=== PATIENT | female | born 1960 | race Caucasian/White ===

== ENCOUNTER 2021-04-08 16:03 | Inpatient (IN) ==
[2021-04-08] MEDS ORDERED: Ondansetron ODT 4 MG TAB.RAPDIS PO PRN (20:42)
[2021-04-08] MEDS: Apixaban 5 MG TABLET PO SCH (21:53)
[2021-04-08] MEDS: *HR* OxyCODONE/APAP 5/325 TABLET PO PRN (23:35)
[2021-04-09] MEDS: *HR* OxyCODONE/APAP 5/325 TABLET PO PRN (03:42)
[2021-04-09] MEDS: Cefepime HCl 1,000 MG in 0.9 % Sodium Chloride Mini Bag 100 ML IVPB SCH ×2 (05:28→16:45)
[2021-04-09] MEDS ORDERED: *HR* HYDROcodone/Acet 5/325 mg TABLET PO ONE (08:15)
[2021-04-09] MEDS ORDERED: DULOXETINE HCL 60 MG PO SCH (09:00)
[2021-04-09] MEDS: Torsemide 20 MG TABLET PO SCH (09:29)
[2021-04-09] MEDS: Loratadine 10 MG TABLET PO SCH (09:31)
[2021-04-09] MEDS: Spironolactone 25 MG TABLET PO SCH (09:31)
[2021-04-09] MEDS: Primidone 50 MG TABLET PO SCH (09:32)
[2021-04-09] MEDS: *HR* Digoxin 0.125 MG TABLET PO SCH (09:32)
[2021-04-09] MEDS: Apixaban 5 MG TABLET PO SCH ×2 (09:32→20:07)
[2021-04-09] MEDS: Nystatin POWDER 30 GM BOTTLE TP SCH ×3 (09:46→20:07)
[2021-04-09] MEDS: Budesonide/Formoterol 160/4.5 1 PUFF INH IH SCH ×2 (09:52→21:30)
[2021-04-09 10:47] LABS: Basophils % 0.3 %; Hematocrit 41.5 % (35.3-44.9); Hemoglobin 12.9 g/dL (11.5-15.4); Immature Granulocytes % 0.7 % (0-4); Lymphocytes # 1.8 K/mcL (0.6-4.6); Lymphocytes % 19.8 %; Mean Corpuscular HGB Conc 31.1 g/dL (31.6-35.5); Mean Corpuscular Hemoglobin 29.4 pg (28.0-33.3); Mean Corpuscular Volume 94.5 fL (83.0-100.0); Mean Platelet Volume 10.5 fL (9.4-12.4); Monocytes # 0.7 K/mcL (0.0-1.3); Monocytes % 7.8 %; Neutrophils # 6.4 K/mcL (1.6-8.9); Nucleated Red Blood Cells 0.2 /100 WBC (0); Platelet Count 314 K/mcL (140-400); Red Blood Count 4.39 M/mcL (3.82-4.97); Red Cell Distribution Width 16.3 % (11.5-14.5); Segmented Neutrophils % 71.4 %
[2021-04-09 11:00] LABS: BUN/Creatinine Ratio 32 (6-26); Blood Urea Nitrogen 34 mg/dL (8-23); Calcium 8.9 mg/dL (8.6-10.3); Carbon Dioxide 31 mEq/L (23-29); Chloride 94 mEq/L (98-107); Glucose 176 mg/dL (70-105); Osmolality,Calculated 286 (280-300); Potassium 4.6 mEq/L (3.5-5.1); Sodium 132 mEq/L (136-145); eGFR For African Americans > 60 (> 60); eGFR For Non-African Americans 53 (> 60)
[2021-04-09] MEDS: *HR* HYDROcodone/Acet 5/325 mg TABLET PO PRN ×2 (16:44→22:25)
[2021-04-10] MEDS: Cefepime HCl 1,000 MG in 0.9 % Sodium Chloride Mini Bag 100 ML IVPB SCH (05:38)
[2021-04-10] MEDS: *HR* HYDROcodone/Acet 5/325 mg TABLET PO PRN ×3 (05:41→18:31)
[2021-04-10 06:06] LABS: Basophils # 0.1 K/mcL (0.0-0.2); Basophils % 0.8 %; Eosinophils # 0.2 K/mcL (0.0-0.6); Hemoglobin 12.8 g/dL (11.5-15.4); Immature Granulocytes % 0.9 % (0-4); Lymphocytes # 3.2 K/mcL (0.6-4.6); Lymphocytes % 27.4 %; Mean Corpuscular HGB Conc 30.5 g/dL (31.6-35.5); Mean Corpuscular Hemoglobin 29.1 pg (28.0-33.3); Mean Corpuscular Volume 95.5 fL (83.0-100.0); Mean Platelet Volume 10.3 fL (9.4-12.4); Monocytes # 1.2 K/mcL (0.0-1.3); Monocytes % 10.4 %; Platelet Count 315 K/mcL (140-400); Red Cell Distribution Width 16.7 % (11.5-14.5); Segmented Neutrophils % 58.5 %; White Blood Count 11.7 K/mcL (4.3-11.1)
[2021-04-10 06:15] LABS: Neutrophils # 6.8 K/mcL (1.6-8.9)
[2021-04-10 06:22] LABS: Albumin/Globulin Ratio 0.7 (1.1-2.2); Bilirubin,Total 1.5 mg/dL (0.3-1.0); Calcium 8.6 mg/dL (8.6-10.3); Globulin 4.2 g/dL (2.4-3.5); Potassium 4.3 mEq/L (3.5-5.1); Total Protein 7.2 g/dL (6.4-8.9)
[2021-04-10] MEDS: Budesonide/Formoterol 160/4.5 1 PUFF INH IH SCH ×2 (10:15→22:16)
[2021-04-10] MEDS: Apixaban 5 MG TABLET PO SCH ×2 (11:03→19:57)
[2021-04-10] MEDS: Torsemide 20 MG TABLET PO SCH (11:03)
[2021-04-10] MEDS: *HR* Digoxin 0.125 MG TABLET PO SCH (11:03)
[2021-04-10] MEDS: Primidone 50 MG TABLET PO SCH (11:04)
[2021-04-10] MEDS: Loratadine 10 MG TABLET PO SCH (11:04)
[2021-04-10] MEDS: Spironolactone 25 MG TABLET PO SCH (11:04)
[2021-04-10] MEDS: Nystatin POWDER 30 GM BOTTLE TP SCH ×3 (11:14→20:01)
[2021-04-10] MEDS: 0.9 % Sodium Chloride 1,000 ML IVC SCH ×2 (11:34→23:02)
[2021-04-10] MEDS: Nitrofurantoin (BID) 100 MG CAPSULE PO SCH (16:18)
[2021-04-10 22:39] VITALS: RESP 18
[2021-04-11] MEDS: *HR* HYDROcodone/Acet 5/325 mg TABLET PO PRN ×2 (06:31→15:11)
[2021-04-11 08:10] LABS: Basophils # 0.1 K/mcL (0.0-0.2); Basophils % 0.9 %; Eosinophils # 0.5 K/mcL (0.0-0.6); Eosinophils % 4.3 %; Hematocrit 42.8 % (35.3-44.9); Hemoglobin 13.2 g/dL (11.5-15.4); Immature Granulocytes % 0.7 % (0-4); Lymphocytes # 2.7 K/mcL (0.6-4.6); Lymphocytes % 25.6 %; Mean Corpuscular HGB Conc 30.8 g/dL (31.6-35.5); Mean Corpuscular Hemoglobin 29.2 pg (28.0-33.3); Mean Corpuscular Volume 94.7 fL (83.0-100.0); Mean Platelet Volume 11.3 fL (9.4-12.4); Monocytes # 1.1 K/mcL (0.0-1.3); Monocytes % 9.9 %; Neutrophils # 6.2 K/mcL (1.6-8.9); Platelet Count 321 K/mcL (140-400); Red Blood Count 4.52 M/mcL (3.82-4.97); Red Cell Distribution Width 16.8 % (11.5-14.5); Segmented Neutrophils % 58.6 %; White Blood Count 10.6 K/mcL (4.3-11.1)
[2021-04-11 08:34] LABS: Calcium 8.4 mg/dL (8.6-10.3); Magnesium 1.9 mg/dL (1.6-2.6); Potassium 4.3 mEq/L (3.5-5.1)
[2021-04-11] MEDS: Primidone 50 MG TABLET PO SCH (10:57)
[2021-04-11] MEDS: *HR* Digoxin 0.125 MG TABLET PO SCH (10:58)
[2021-04-11] MEDS: Nitrofurantoin (BID) 100 MG CAPSULE PO SCH ×2 (10:59→17:54)
[2021-04-11] MEDS: Spironolactone 25 MG TABLET PO SCH (10:59)
[2021-04-11] MEDS: Loratadine 10 MG TABLET PO SCH (10:59)
[2021-04-11] MEDS: Apixaban 5 MG TABLET PO SCH ×2 (11:00→21:34)
[2021-04-11] MEDS: Torsemide 20 MG TABLET PO SCH (11:00)
[2021-04-11] MEDS: Nystatin POWDER 30 GM BOTTLE TP SCH ×3 (11:00→21:38)
[2021-04-11] MEDS: Budesonide/Formoterol 160/4.5 1 PUFF INH IH SCH ×2 (11:21→22:52)
[2021-04-11] MEDS: Sennosides/Docusate Sodium TABLET PO SCH ×2 (11:22→21:34)
[2021-04-11] MEDS ORDERED: Capsaicin 0.025% 60 GM TUBE TP PRN (16:40)
[2021-04-12] MEDS: *HR* HYDROcodone/Acet 5/325 mg TABLET PO PRN ×2 (04:52→14:15)
[2021-04-12 07:23] LABS: Basophils # 0.1 K/mcL (0.0-0.2); Basophils % 0.6 %; Eosinophils # 0.5 K/mcL (0.0-0.6); Eosinophils % 4.4 %; Hematocrit 40.8 % (35.3-44.9); Hemoglobin 12.6 g/dL (11.5-15.4); Immature Granulocytes % 0.5 % (0-4); Lymphocytes # 2.1 K/mcL (0.6-4.6); Lymphocytes % 19.1 %; Mean Corpuscular HGB Conc 30.9 g/dL (31.6-35.5); Mean Corpuscular Hemoglobin 29.2 pg (28.0-33.3); Mean Corpuscular Volume 94.4 fL (83.0-100.0); Mean Platelet Volume 11.1 fL (9.4-12.4); Monocytes % 8.8 %; Neutrophils # 7.4 K/mcL (1.6-8.9); Platelet Count 329 K/mcL (140-400); Red Blood Count 4.32 M/mcL (3.82-4.97); Red Cell Distribution Width 16.6 % (11.5-14.5); Segmented Neutrophils % 66.6 %; White Blood Count 11.1 K/mcL (4.3-11.1)
[2021-04-12 07:55] LABS: BUN/Creatinine Ratio 50 (6-26); Blood Urea Nitrogen 50 mg/dL (8-23); Calcium 8.9 mg/dL (8.6-10.3); Carbon Dioxide 32 mEq/L (23-29); Chloride 99 mEq/L (98-107); Glucose 112 mg/dL (70-105); Osmolality,Calculated 300 (280-300); Potassium 4.7 mEq/L (3.5-5.1); Sodium 138 mEq/L (136-145); eGFR For African Americans > 60 (> 60); eGFR For Non-African Americans 56 (> 60)
[2021-04-12] MEDS: Spironolactone 25 MG TABLET PO SCH (08:47)
[2021-04-12] MEDS: *HR* Digoxin 0.125 MG TABLET PO SCH (08:47)
[2021-04-12] MEDS: Primidone 50 MG TABLET PO SCH (08:47)
[2021-04-12] MEDS: Nitrofurantoin (BID) 100 MG CAPSULE PO SCH ×2 (08:47→18:18)
[2021-04-12] MEDS: Apixaban 5 MG TABLET PO SCH ×2 (08:48→21:20)
[2021-04-12] MEDS: Sennosides/Docusate Sodium TABLET PO SCH ×2 (08:48→21:19)
[2021-04-12] MEDS: Loratadine 10 MG TABLET PO SCH (08:48)
[2021-04-12] MEDS: Torsemide 20 MG TABLET PO SCH (08:53)
[2021-04-12] MEDS: Nystatin POWDER 30 GM BOTTLE TP SCH ×3 (10:37→21:20)
[2021-04-12] MEDS: Budesonide/Formoterol 160/4.5 1 PUFF INH IH SCH ×2 (10:59→22:27)
[2021-04-12 19:26] VITALS: BP 102/67; PULSE 84; TEMP 97.9; O2SAT 90
[2021-04-13] MEDS: *HR* HYDROcodone/Acet 5/325 mg TABLET PO PRN (00:47)
== END 2021-04-12 23:30 | DRG 690 ==
LOC: INPPIK
PROVIDERS: ADMIT Internal Medicine; ATTEND Internal Medicine

== ENCOUNTER 2021-04-12 14:10 | Inpatient (IN) ==
[2021-04-13] MEDS ORDERED: Furosemide 40 MG TABLET PO SCH (09:00)
[2021-04-13] MEDS ORDERED: DULOXETINE HCL 60 MG PO SCH (09:00)
[2021-04-13] MEDS: Torsemide 20 MG TABLET PO SCH (09:06)
[2021-04-13] MEDS: Primidone 50 MG TABLET PO SCH (09:07)
[2021-04-13] MEDS: Spironolactone 25 MG TABLET PO SCH (09:07)
[2021-04-13] MEDS: *HR* Digoxin 0.125 MG TABLET PO SCH (09:08)
[2021-04-13] MEDS: Cholecalciferol (D-3) 1,000 UNIT (25MCG) TABLET PO SCH ×2 (09:08→20:39)
[2021-04-13] MEDS: *HR* OxyCODONE/APAP 5/325 TABLET PO PRN ×3 (09:15→20:38)
[2021-04-13] MEDS: Budesonide/Formoterol 160/4.5 1 PUFF INH IH SCH (09:21)
[2021-04-13] MEDS: Nitrofurantoin (BID) 100 MG CAPSULE PO SCH (16:26)
[2021-04-13] MEDS: Sennosides/Docusate Sodium TABLET PO SCH (20:39)
[2021-04-13] MEDS: Bisacodyl 10 MG RECTAL SUPPOSITORY RC PRN (21:49)
[2021-04-14] MEDS: Primidone 50 MG TABLET PO SCH (07:24)
[2021-04-14] MEDS: Torsemide 20 MG TABLET PO SCH (07:24)
[2021-04-14] MEDS: *HR* Digoxin 0.125 MG TABLET PO SCH (07:25)
[2021-04-14] MEDS: Cholecalciferol (D-3) 1,000 UNIT (25MCG) TABLET PO SCH ×2 (07:26→20:53)
[2021-04-14] MEDS: Nitrofurantoin (BID) 100 MG CAPSULE PO SCH ×2 (07:26→16:28)
[2021-04-14] MEDS: Sennosides/Docusate Sodium TABLET PO SCH ×2 (07:26→20:53)
[2021-04-14] MEDS: Spironolactone 25 MG TABLET PO SCH (07:26)
[2021-04-14] MEDS: Budesonide/Formoterol 160/4.5 1 PUFF INH IH SCH (09:13)
[2021-04-14] MEDS: Apixaban 5 MG TABLET PO SCH ×2 (09:46→20:52)
[2021-04-14] MEDS: *HR* OxyCODONE/APAP 5/325 TABLET PO PRN (09:47)
[2021-04-15] MEDS: *HR* OxyCODONE/APAP 5/325 TABLET PO PRN (00:48)
[2021-04-15 07:35] LABS: Basophils # 0.1 K/mcL (0.0-0.2); Basophils % 1.3 %; Eosinophils # 0.5 K/mcL (0.0-0.6); Eosinophils % 5.3 %; Hematocrit 43.6 % (35.3-44.9); Hemoglobin 13.6 g/dL (11.5-15.4); Lymphocytes # 3.4 K/mcL (0.6-4.6); Lymphocytes % 32.9 %; Mean Corpuscular HGB Conc 31.2 g/dL (31.6-35.5); Mean Corpuscular Hemoglobin 29.4 pg (28.0-33.3); Mean Corpuscular Volume 94.2 fL (83.0-100.0); Mean Platelet Volume 10.5 fL (9.4-12.4); Monocytes # 1.1 K/mcL (0.0-1.3); Monocytes % 10.4 %; Nucleated Red Blood Cells 0.2 /100 WBC (0); Platelet Count 371 K/mcL (140-400); Red Blood Count 4.63 M/mcL (3.82-4.97); Red Cell Distribution Width 16.7 % (11.5-14.5); Segmented Neutrophils % 49.1 %; White Blood Count 10.2 K/mcL (4.3-11.1)
[2021-04-15 07:45] LABS: BUN/Creatinine Ratio 40 (6-26); Blood Urea Nitrogen 42 mg/dL (8-23); Calcium 8.9 mg/dL (8.6-10.3); Carbon Dioxide 37 mEq/L (23-29); Chloride 94 mEq/L (98-107); Glucose 88 mg/dL (70-105); Osmolality,Calculated 292 (280-300); Potassium 4.4 mEq/L (3.5-5.1); Sodium 136 mEq/L (136-145); eGFR For African Americans > 60 (> 60); eGFR For Non-African Americans 53 (> 60)
[2021-04-15] MEDS: Nitrofurantoin (BID) 100 MG CAPSULE PO SCH ×2 (08:12→18:12)
[2021-04-15] MEDS: *HR* Digoxin 0.125 MG TABLET PO SCH (08:13)
[2021-04-15] MEDS: Primidone 50 MG TABLET PO SCH (08:13)
[2021-04-15] MEDS: Apixaban 5 MG TABLET PO SCH ×2 (08:13→20:21)
[2021-04-15] MEDS: Torsemide 20 MG TABLET PO SCH (08:13)
[2021-04-15] MEDS: Sennosides/Docusate Sodium TABLET PO SCH ×2 (08:13→20:21)
[2021-04-15] MEDS: Spironolactone 25 MG TABLET PO SCH (08:13)
[2021-04-15] MEDS: Cholecalciferol (D-3) 1,000 UNIT (25MCG) TABLET PO SCH ×2 (08:14→20:21)
[2021-04-15] MEDS: Budesonide/Formoterol 160/4.5 1 PUFF INH IH SCH (08:52)
[2021-04-16] MEDS: Apixaban 5 MG TABLET PO SCH ×2 (08:21→21:33)
[2021-04-16] MEDS: Spironolactone 25 MG TABLET PO SCH (08:22)
[2021-04-16] MEDS: Sennosides/Docusate Sodium TABLET PO SCH ×2 (08:22→21:33)
[2021-04-16] MEDS: Nitrofurantoin (BID) 100 MG CAPSULE PO SCH ×2 (08:22→16:29)
[2021-04-16] MEDS: Cholecalciferol (D-3) 1,000 UNIT (25MCG) TABLET PO SCH ×2 (08:22→21:33)
[2021-04-16] MEDS: *HR* Digoxin 0.125 MG TABLET PO SCH (08:22)
[2021-04-16] MEDS: Primidone 50 MG TABLET PO SCH (08:22)
[2021-04-16] MEDS: Torsemide 20 MG TABLET PO SCH (08:22)
[2021-04-16] MEDS: Budesonide/Formoterol 160/4.5 1 PUFF INH IH SCH (09:55)
[2021-04-16] MEDS: Bisacodyl 10 MG RECTAL SUPPOSITORY RC PRN (14:40)
[2021-04-16] MEDS: Ondansetron ODT 4 MG TAB.RAPDIS PO PRN ×2 (14:40→21:32)
[2021-04-16] MEDS: *HR* OxyCODONE/APAP 5/325 TABLET PO PRN (21:37)
[2021-04-17] MEDS: Apixaban 5 MG TABLET PO SCH ×2 (08:10→21:08)
[2021-04-17] MEDS: Primidone 50 MG TABLET PO SCH (08:11)
[2021-04-17] MEDS: *HR* Digoxin 0.125 MG TABLET PO SCH (08:11)
[2021-04-17] MEDS: Nitrofurantoin (BID) 100 MG CAPSULE PO SCH ×2 (08:14→18:47)
[2021-04-17] MEDS: Torsemide 20 MG TABLET PO SCH (08:15)
[2021-04-17] MEDS: Sennosides/Docusate Sodium TABLET PO SCH ×2 (08:15→21:08)
[2021-04-17] MEDS: Cholecalciferol (D-3) 1,000 UNIT (25MCG) TABLET PO SCH ×2 (08:15→21:08)
[2021-04-17] MEDS: Spironolactone 25 MG TABLET PO SCH (08:15)
[2021-04-17] MEDS: Budesonide/Formoterol 160/4.5 1 PUFF INH IH SCH (09:32)
[2021-04-17] MEDS: Ondansetron ODT 4 MG TAB.RAPDIS PO PRN (13:52)
[2021-04-17] MEDS: *HR* OxyCODONE/APAP 5/325 TABLET PO PRN (23:46)
[2021-04-18] MEDS: Nitrofurantoin (BID) 100 MG CAPSULE PO SCH ×2 (09:01→16:44)
[2021-04-18] MEDS: Primidone 50 MG TABLET PO SCH (09:01)
[2021-04-18] MEDS: Spironolactone 25 MG TABLET PO SCH (09:01)
[2021-04-18] MEDS: Cholecalciferol (D-3) 1,000 UNIT (25MCG) TABLET PO SCH ×2 (09:02→20:25)
[2021-04-18] MEDS: Torsemide 20 MG TABLET PO SCH (09:02)
[2021-04-18] MEDS: Sennosides/Docusate Sodium TABLET PO SCH ×2 (09:02→20:27)
[2021-04-18] MEDS: *HR* Digoxin 0.125 MG TABLET PO SCH (09:02)
[2021-04-18] MEDS: Apixaban 5 MG TABLET PO SCH ×2 (09:02→20:25)
[2021-04-18] MEDS: Budesonide/Formoterol 160/4.5 1 PUFF INH IH SCH ×2 (09:43→10:33)
[2021-04-18] MEDS: *HR* OxyCODONE/APAP 5/325 TABLET PO PRN (20:24)
[2021-04-19] MEDS: Torsemide 20 MG TABLET PO SCH (09:42)
[2021-04-19] MEDS: Nitrofurantoin (BID) 100 MG CAPSULE PO SCH ×2 (09:42→18:14)
[2021-04-19] MEDS: Primidone 50 MG TABLET PO SCH (09:42)
[2021-04-19] MEDS: Apixaban 5 MG TABLET PO SCH ×2 (09:42→19:59)
[2021-04-19] MEDS: *HR* Digoxin 0.125 MG TABLET PO SCH (09:43)
[2021-04-19] MEDS: Sennosides/Docusate Sodium TABLET PO SCH ×3 (09:43→20:11)
[2021-04-19] MEDS: Cholecalciferol (D-3) 1,000 UNIT (25MCG) TABLET PO SCH ×2 (09:44→20:00)
[2021-04-19] MEDS: Spironolactone 25 MG TABLET PO SCH (09:44)
[2021-04-19] MEDS: Budesonide/Formoterol 160/4.5 1 PUFF INH IH SCH (09:51)
[2021-04-20] MEDS: *HR* OxyCODONE/APAP 5/325 TABLET PO PRN ×2 (04:07→12:33)
[2021-04-20] MEDS: Budesonide/Formoterol 160/4.5 1 PUFF INH IH SCH (09:05)
[2021-04-20] MEDS: Primidone 50 MG TABLET PO SCH (09:35)
[2021-04-20] MEDS: Nitrofurantoin (BID) 100 MG CAPSULE PO SCH (09:36)
[2021-04-20] MEDS: Sennosides/Docusate Sodium TABLET PO SCH ×2 (09:37→22:25)
[2021-04-20] MEDS: Apixaban 5 MG TABLET PO SCH ×2 (09:37→22:24)
[2021-04-20] MEDS: Cholecalciferol (D-3) 1,000 UNIT (25MCG) TABLET PO SCH ×2 (09:37→22:25)
[2021-04-20] MEDS: Torsemide 20 MG TABLET PO SCH (09:49)
[2021-04-20] MEDS: Spironolactone 25 MG TABLET PO SCH (09:49)
[2021-04-20] MEDS: *HR* Digoxin 0.125 MG TABLET PO SCH (09:50)
[2021-04-21] MEDS: *HR* OxyCODONE/APAP 5/325 TABLET PO PRN ×3 (00:27→14:55)
[2021-04-21] MEDS: Primidone 50 MG TABLET PO SCH (08:01)
[2021-04-21] MEDS: Cholecalciferol (D-3) 1,000 UNIT (25MCG) TABLET PO SCH ×2 (08:01→21:34)
[2021-04-21] MEDS: Sennosides/Docusate Sodium TABLET PO SCH ×2 (08:02→21:34)
[2021-04-21] MEDS: Spironolactone 25 MG TABLET PO SCH (08:03)
[2021-04-21] MEDS: Torsemide 20 MG TABLET PO SCH (08:03)
[2021-04-21] MEDS: *HR* Digoxin 0.125 MG TABLET PO SCH (08:03)
[2021-04-21] MEDS: Apixaban 5 MG TABLET PO SCH ×2 (08:03→21:34)
[2021-04-21] MEDS: Budesonide/Formoterol 160/4.5 1 PUFF INH IH SCH (10:26)
[2021-04-22 06:51] VITALS: BP 89/60; PULSE 85; TEMP 97.8
[2021-04-22] MEDS: Torsemide 20 MG TABLET PO SCH (08:33)
[2021-04-22] MEDS: Primidone 50 MG TABLET PO SCH (09:26)
[2021-04-22] MEDS: Sennosides/Docusate Sodium TABLET PO SCH (09:26)
[2021-04-22] MEDS: Spironolactone 25 MG TABLET PO SCH (09:26)
[2021-04-22] MEDS: *HR* OxyCODONE/APAP 5/325 TABLET PO PRN (09:26)
[2021-04-22] MEDS: Apixaban 5 MG TABLET PO SCH (09:26)
[2021-04-22] MEDS: *HR* Digoxin 0.125 MG TABLET PO SCH (09:26)
[2021-04-22] MEDS: Cholecalciferol (D-3) 1,000 UNIT (25MCG) TABLET PO SCH (09:26)
[2021-04-22] MEDS: Budesonide/Formoterol 160/4.5 1 PUFF INH IH SCH (10:54)
[2021-04-22 15:45] VITALS: RESP 18; O2SAT 94
== END 2021-04-22 17:00 | disposition home health service (06) | DRG 690 ==
LOC: INPPIK 04-13 02:19
PROVIDERS: ADMIT Internal Medicine; ATTEND Internal Medicine